=== PATIENT | male | born 1950 | race Two or more races ===

== ENCOUNTER 2022-05-14 10:40 | Inpatient (IN) | payer MEDICARE, OTHER ==
[2022-05-14] VITALS (12 sets, daily range): BP systolic 116–154; BP diastolic 45–82
[~2022-05-14] VITALS: Ht 177.8 cm; Wt 88.5 kg
--- NOTE | 2022-05-14 13:35 | NUR ---
ACCESS COORDINATOR NOTES: ADMITTED PT. FROM [facility]IA [facility]; PT. NO SSX OF ACUTE DISTRESS NOTED, ABLE TO MAKE NEEDS KNOWN, CALL LIGHT IN REACH, CHARGE NURSE NOTIFIED AND LUCIANA REGARDING PATIENT ADMISSION.
[2022-05-14] MEDS ORDERED: NITROGLYCERIN IN 5 % DEXTROSE 250 ML IV ONE (14:28)
[2022-05-14] MEDS ORDERED: IODIXANOL 150 ML IV ONE ×2 (14:28→15:39)
[2022-05-14] MEDS ORDERED: IV SET PRIMARY PUMP SET 1 EA INFUS.SET MC ONE (14:29)
[2022-05-14] MEDS ORDERED: IV NS 0.9% 1,000 ML ONE (14:29)
--- NOTE | 2022-05-14 14:30 | NUR ---
TO OPEN WINDER. PROCEDURE, NO SSX OF ACUTE DISTRESS NOTED, STABLE CONDITION UPON RADIO COMMUNICATIONS SUPERINTENDENT.
[2022-05-14] MEDS ORDERED: LIDOCAINE 1% INJ 50 ML MDV IJ ONE (14:36)
[2022-05-14] MEDS ORDERED: MIDAZOLAM HCL 2 MG/2ML VIAL ONE (15:07)
[2022-05-14] MEDS ORDERED: FENTANYL PF 100MCG/2ML AMPUL ONE (15:07)
[2022-05-14] MEDS ORDERED: ISOS30TA86 PO (15:23)
[2022-05-14] MEDS ORDERED: ONDA-97 PO (15:23)
[2022-05-14] MEDS ORDERED: AMLO-212 PO (15:23)
[2022-05-14] MEDS ORDERED: VALS80TA31 PO (15:23)
[2022-05-14] MEDS ORDERED: FAMO20TA8 PO (15:23)
[2022-05-14] MEDS ORDERED: LIDO700A30 TP (15:23)
[2022-05-14] MEDS ORDERED: GLIM4TAB37 PO (15:23)
[2022-05-14] MEDS ORDERED: SEMA1PEN SQ (15:23)
[2022-05-14] MEDS ORDERED: SITA1TAB6 PO (15:23)
[2022-05-14] MEDS ORDERED: DOCU-141 PO (15:23)
[2022-05-14] MEDS ORDERED: CHOL100043 PO (15:23)
[2022-05-14] MEDS ORDERED: FERR325T23 PO (15:23)
[2022-05-14] MEDS ORDERED: MONT10TA22 PO (15:23)
[2022-05-14] MEDS ORDERED: DAPA10TA PO (15:23)
[2022-05-14] MEDS ORDERED: ROSU10TA29 PO (15:23)
[2022-05-14] MEDS ORDERED: METO-357 PO (15:23)
[2022-05-14] MEDS ORDERED: MELA3TAB41 PO (15:23)
[2022-05-14] MEDS ORDERED: HYDR25TA4 PO (15:23)
[2022-05-14] MEDS ORDERED: RANO500T6 PO (15:23)
[2022-05-14] MEDS ORDERED: DULO30CA52 PO (15:23)
[2022-05-14] MEDS ORDERED: DICL100G34 TP (15:23)
[2022-05-14] MEDS ORDERED: SOLI10TA7 PO (15:23)
[2022-05-14] MEDS ORDERED: TICA90TA PO (15:23)
[2022-05-14] MEDS ORDERED: ALBU18HF2 IH (15:23)
[2022-05-14] MEDS ORDERED: LISI20TA30 PO (15:23)
[2022-05-14] MEDS ORDERED: OMEG-72 PO (15:23)
[2022-05-14] MEDS ORDERED: OMEP1CAP25 PO (15:23)
[2022-05-14] MEDS ORDERED: HYDR-4075 PO (15:23)
--- NOTE | 2022-05-14 16:35 | NUR ---
BACK FROM CATH. LAB. S/P CORONARY ANGIOGRAM,RIGHT FEMORAL SITE ,NO NOTED BLEEDING, DRSG CDI; BEDREST, FLAT ON BED PER MD ORDER.
--- NOTE | 2022-05-14 16:44 | NUR ---
NOTIFIED DR CHARLES THAT AND DAUGHTER ARE REQUESTING A CALL FROM .
--- NOTE | 2022-05-14 17:22 | NUR ---
NOTIFIED DR CHARLES 2ND TIME NOW THAT -FAN AND DAUGHTER ARE REQUESTING A CALL FROM MD.PER MD " I'LL CALL WHEN I CAN." PATIENT'S FAMILY WAS MADE AWARE AND VERBALIZED UNDERSTANDING.
[2022-05-14] MEDS ORDERED: ACETAMINOPHEN 325 MG TABLET PO PRN (18:00)
[2022-05-14] MEDS ORDERED: TEMAZEPAM 15 MG CAPSULE PO PRN (18:00)
[2022-05-14] MEDS ORDERED: HYDROCODONE/APAP 5/325MG TABLET PO PRN (18:00)
[2022-05-14] MEDS ORDERED: ONDANSETRON HCL/PF 4 MG/2 ML VIAL IVP PRN (18:00)
[2022-05-14] MEDS ORDERED: MORPHINE SULFATE INJ 2 MG/ML DISP.SYRIN IV PRN (18:00)
[2022-05-14] MEDS ORDERED: MAGNESIUM HYDROXIDE 30 ML UDC PO PRN (18:00)
[2022-05-14] MEDS ORDERED: DEXTROSE 50%-WATER 50 ML DISP.SYRIN IV PRN (18:00)
[2022-05-14] MEDS ORDERED: MAG HYDROX/AL HYDROX/SIMETH 30 ML UDC PO PRN (18:00)
[2022-05-14] MEDS ORDERED: Z GUARD REMEDY 4 OZ OINT TP PRN (18:00)
--- NOTE | 2022-05-14 18:02 | NUR ---
PER /DAUGHTER THEY ALREADY SPOKE WITH DR. CHARLES.
[2022-05-14] MEDS ORDERED: hydrALAZINE HCL 10 MG TABLET PO PRN (18:30)
[2022-05-14] MEDS ORDERED: ALBUTEROL FS 2.5 MG/0.5 ML VIAL.NEB NEB PRN (18:30)
[2022-05-14 19:40] LABS: CALCIUM, SERUM 8.4 mg/dL (8.5-10.1); CARBON DIOXIDE 21 mmol/L (21-32); CHLORIDE 107 mmol/L (98-107); CREATININE 1.4 mg/dL (0.6-1.3); GLUCOSE 100 mg/dL (74-106); POTASSIUM 4.7 mmol/L (3.5-5.1); SODIUM SERUM 138 mmol/L (136-145); UREA NITROGEN, BLOOD 25 mg/dL (7-18)
[2022-05-14] MEDS ORDERED: DICLOFENAC TOPICAL 100 GM GEL..GM. TP SCH (21:00)
[2022-05-14] MEDS: BLOOD SUGAR DIAGNOSTIC 1 EACH STRIP IN SCH (21:58)
[2022-05-15] VITALS (18 sets, daily range): BP systolic 104–155; BP diastolic 43–77
[2022-05-15 04:37] LABS: BASOPHILS # (AUTO) 0.1 K/uL (0.0-0.2); BASOPHILS % (AUTO) 0.7 % (0.0-2.0); EOSINOPHILS % (AUTO) 0.1 % (0.0-6.0); HEMATOCRIT 40 % (39-51); HEMOGLOBIN 13.3 g/dL (13.5-17.5); LYMPHOCYTES # (AUTO) 1.1 K/uL (0.8-4.8); LYMPHOCYTES % (AUTO) 9.3 % (20.0-44.0); MEAN CORPUSCULAR HGB CONC 33 g/dl (31.0-36.0); MEAN CORPUSCULAR VOLUME 85 fL (80-96); MONOCYTES # (AUTO) 0.9 K/uL (0.1-1.30); MONOCYTES % (AUTO) 7.5 % (2.0-12.0); NEUTROPHILS # (AUTO) 9.7 K/uL (1.8-8.9); NEUTROPHILS % (AUTO) 82.4 % (43.0-81.0); PLATELET COUNT (AUTO) 183 K/uL (150-450); RED BLOOD CELL COUNT(AUTO) 4.73 MIL/uL (4.5-6.0); WHITE BLOOD COUNT (AUTO) 11.8 K/uL (4.3-11.0)
[2022-05-15 04:51] LABS: CALCIUM, SERUM 9.4 mg/dL (8.5-10.1); CARBON DIOXIDE 25 mmol/L (21-32); CHLORIDE 104 mmol/L (98-107); CREATININE 1.6 mg/dL (0.6-1.3); GLUCOSE 96 mg/dL (74-106); MAGNESIUM 1.9 mg/dL (1.8-2.4); PHOSPHORUS 4.9 mg/dL (2.5-4.9); POTASSIUM 3.8 mmol/L (3.5-5.1); SODIUM SERUM 140 mmol/L (136-145); UREA NITROGEN, BLOOD 26 mg/dL (7-18)
[2022-05-15 04:52] LABS: CHOLESTEROL 163 mg/dL (<200); HDL CHOLESTEROL 39 mg/dL (40-60); LDL 101 mg/dL (0-99); TRIGLYCERIDES 150 mg/dL (30-150)
--- NOTE | 2022-05-15 05:21 | NUR ---
ICU/RN: CRITICAL TROP RELAYED TO TYLER MORENO. NO NEW ORDERS.
--- NOTE | 2022-05-15 07:15 | NUR ---
APPLIED TECHNOLOGIST OPENING NOTE: RECEIVED PT. IN BED, AWAKE AOX4, NO COMPLAINTS OF PAIN/DISCOMFORT AT THIS TIME. ON RA, SATURATING AT 97%. NO S/S OF RESPIRATORY DISTRESS. DIELECTRIC PRESS OPERATOR READS NSR AT 85 BPM. USES URINAL AT BEDSIDE, VOIDING CLEAR YELLOW URINE. DRESSING FOR R FEMORAL HEART CATH INSERTION SITE C/D/I. WILL CONTINUE TO MONITOR FOR S/S OF BLEEDING. IV ACCESS ON R HAND #20G, PATENT AND SALINE LOCKED. IV SITE DRESSING C/D/I WITH NO S/S OF INFILTRATION. SAFETY MEASURES IN PLACE: BED IN LOWEST AND LOCKED POSITION, HOB ELEVATED AT 30 DEGREES, BED ALARM ON, SIDE RAILS UP X2, CALL LIGHT WITHIN EASY REACH. WILL ENCOURAGE FREQUENT REPOSITIONING IN BED AT LEAST Q2H. WILL CONTINUE TO MONITOR PT. FOR ANY CHANGES.
[2022-05-15] MEDS ORDERED: FAMOTIDINE (20 MG) 20 MG TABLET PO SCH (09:00)
[2022-05-15] MEDS ORDERED: LIDOCAINE 5% (PATCH) 1 EA PATCH TP SCH (09:00)
[2022-05-15] MEDS: DAPAGLIFLOZIN PROPANEDIOL 5 MG TABLET PO SCH (09:57)
[2022-05-15] MEDS: CHOLECALCIFEROL 1,000 UNIT TABLET (VIT D3) PO SCH (09:58)
[2022-05-15] MEDS: HYDROCHLOROTHIAZIDE 25 MG TABLET PO SCH ×2 (09:58→17:00)
[2022-05-15] MEDS: ATORVASTATIN 10 MG TABLET PO SCH (09:58)
[2022-05-15] MEDS: FERROUS SULFATE (325 MG) 325 MG/TAB TABLET PO SCH ×2 (09:59→17:26)
[2022-05-15] MEDS: MONTELUKAST SODIUM (10MG) 10 MG TABLET PO SCH (09:59)
[2022-05-15] MEDS: TICAGRELOR 90 MG TABLET PO SCH ×2 (09:59→17:30)
[2022-05-15] MEDS: VALSARTAN 80 MG TABLET PO SCH (10:02)
[2022-05-15] MEDS: LISINOPRIL (20MG) 20 MG TABLET PO SCH (10:03)
[2022-05-15] MEDS: DULOXETINE HCL 30 MG CAPSULE.DR PO SCH (10:03)
[2022-05-15] MEDS: ISOSORBIDE MONONITRATE (30MG) 30 MG TAB.SR.24H PO SCH (10:03)
[2022-05-15] MEDS: AMLODIPINE BESYLATE 5 MG TABLET PO SCH ×2 (10:04→17:00)
[2022-05-15] MEDS: METOPROLOL SUCCINATE 50 MG TAB.SR.24H PO SCH ×2 (10:04→17:00)
[2022-05-15] MEDS: RANOLAZINE 500 MG TAB.ER.12H PO SCH ×2 (10:04→17:26)
[2022-05-15] MEDS: DOCUSATE SODIUM 100 MG CAPSULE PO SCH ×2 (10:04→17:26)
[2022-05-15] MEDS: GLIMEPIRIDE 4 MG TABLET PO SCH ×2 (10:04→17:27)
[2022-05-15] MEDS: PANTOPRAZOLE 40 MG TABLET.DR PO SCH (10:06)
[2022-05-15] MEDS: BLOOD SUGAR DIAGNOSTIC 1 EACH STRIP IN SCH ×4 (10:14→21:39)
--- NOTE | 2022-05-15 12:20 | NUR ---
OPTIMIZATION MANAGER NOTE: PT.'S BG - 156. REFUSED TO EAT OR DRINK ANYTHING. WILL HOLD INSULIN COVERAGE AND WILL CONTINUE TO MONITOR PT. FOR S/S OF HYPERGLYCEMIA.
--- NOTE | 2022-05-15 12:30 | NUR ---
STEEPLECHASE JOCKEY NOTE: PT. VOMITTED 150 ML CLEAR GASTRIC FLUID WITH FOOD PARTICLES. DENIES ANY NAUSEA. REFUSED ZOFRAN FOR NOW. EDUCATED ON IMPORTANCE OF GETTING MEDICATION. VS STABLE AT THIS TIME. WILL CONTINUE TO MONITOR PT.'S VOMITING.
--- NOTE | 2022-05-15 14:20 | NUR ---
COFFEE MACHINE TECHNICIAN NOTE: PT. COMPLAINED OF NAUSEA. NO VOMITTING AT THIS TIME. ZOFRAN 4 MG IV PUSH GIVEN AT 1346. PT. NOW VERBALIZED RELIEF OF NAUSEA. VOMITTING CEASED. WILL CONTINUE TO MONITOR PT. FOR ANY CHANGES.
--- NOTE | 2022-05-15 15:50 | NUR ---
MOLDING MACHINE OPERATORCLAY MINER NOTE: PT. TRANSFERRED TO TELE ROOM# 306-2 VIA HOSPITAL BED. AT BEDSIDE. REPORT GIVEN TO TRANSFORMER INSPECTOR - JAIRON. PT. REMAINS AWAKE AOX4, NO COMPLAINTS OF PAIN/DISCOMFORT/NAUSEA AT THIS TIME. NO VOMITTING. ON RA, SATURATING AT 94%. NO S/S OF RESPIRATORY DISTRESS. ORDER ENTRY ADMINISTRATOR READS NSR AT 79 BPM. USES URINAL AT BEDSIDE, VOIDED TOTAL OF 580ML CLEAR YELLOW URINE THIS SHIFT. DRESSING FOR R FEMORAL HEART CATH INSERTION SITE C/D/I. IV ACCESS REMAINS ON R HAND #20G, PATENT AND SALINE LOCKED. IV SITE DRESSING C/D/I WITH NO S/S OF INFILTRATION. SAFETY MEASURES MAINTAINED: BED IN LOWEST AND LOCKED POSITION, HOB ELEVATED AT 30 DEGREES, BED ALARM ON, SIDE RAILS UP X2, CALL LIGHT WITHIN EASY REACH. ENCOURAGED FREQUENT REPOSITIONING IN BED AT LEAST Q2H. PT. CHART, MEDICATIONS AND BELONGINGS HANDED TO TRANSFORMER INSPECTOR JAIRON AT BEDSIDE. ENDORSED CONTINUITY OF CARE.
--- NOTE | 2022-05-15 16:00 | NUR ---
ms rn received a new transfer from icu, awake,alert,oriented x4,not in any form of distress,respirations eveb abd unlabored,no sob noted, nsr on monitor,will monitor patient,all needs attended.
--- NOTE | 2022-05-15 17:58 | NUR ---
ms rn blood sugar -156 - patient refused to give coverage,no s/s of hyperglycemia noted,denies pain at this time will endorse to track grinder for quang.
--- NOTE | 2022-05-15 19:35 | NUR ---
SUPERVISOR IN CIRCUIT TESTING NOTES RECEIVED ON BED,A/O X4,BREATHING REGULAR,NOT IN ANY FORM OF DISTRESS.DENIES CHEST PAIN.S/P CARDIAC CATH YESTERDAY RIGHT GROIN.NO BLEEDING NOTED.SALINE LOCK LEFT HAND INTACT AND PATENT.CALL LIGHT IN REACH,NEEDS ANTICIPATED.
--- NOTE | 2022-05-15 21:40 | NUR ---
FARM EQUIPMENT TECHNICIAN NOTES ACCU-CHECK BLOOD SUGAR CHECKED 173MG/DL,REFUSED INSULIN COVERAGE. PER SLIDING SCALE.
[2022-05-16] VITALS: BP 102/48
[2022-05-16 05:00] VITALS: BP 105/48
[2022-05-16] MEDS: BLOOD SUGAR DIAGNOSTIC 1 EACH STRIP IN SCH ×4 (05:21→22:51)
--- NOTE | 2022-05-16 05:30 | NUR ---
MS RN NOTES ACCU-CHECK BLOOD SUGAR CHECK 85,NO INSULIN COVERAGE PER SLIDING SCALE.
[2022-05-16 06:00] LABS: BASOPHILS % (AUTO) 0.3 % (0.0-2.0); EOSINOPHILS % (AUTO) 0.9 % (0.0-6.0); HEMATOCRIT 35 % (39-51); HEMOGLOBIN 11.7 g/dL (13.5-17.5); LYMPHOCYTES # (AUTO) 1.3 K/uL (0.8-4.8); LYMPHOCYTES % (AUTO) 14.5 % (20.0-44.0); MEAN CORPUSCULAR HGB CONC 34 g/dl (31.0-36.0); MEAN CORPUSCULAR VOLUME 84 fL (80-96); MONOCYTES # (AUTO) 0.9 K/uL (0.1-1.30); MONOCYTES % (AUTO) 10.4 % (2.0-12.0); NEUTROPHILS # (AUTO) 6.6 K/uL (1.8-8.9); NEUTROPHILS % (AUTO) 73.9 % (43.0-81.0); PLATELET COUNT (AUTO) 163 K/uL (150-450); RED BLOOD CELL COUNT(AUTO) 4.13 MIL/uL (4.5-6.0); WHITE BLOOD COUNT (AUTO) 8.9 K/uL (4.3-11.0)
--- NOTE | 2022-05-16 06:17 | NUR ---
TRADER NOTES LAYING COMFORTABLY ON BED,SLEEP WELL.DENIES CHEST PAIN.URINE SPECIMEN STILL NEEDED.POSSIBLE DISCHARGE WHEN MEDICALLY STABLE.
[2022-05-16 06:37] LABS: CALCIUM, SERUM 8.6 mg/dL (8.5-10.1); CARBON DIOXIDE 24 mmol/L (21-32); CHLORIDE 105 mmol/L (98-107); CREATININE 2.2 mg/dL (0.6-1.3); GLUCOSE 75 mg/dL (74-106); MAGNESIUM 2.1 mg/dL (1.8-2.4); PHOSPHORUS 5.1 mg/dL (2.5-4.9); SODIUM SERUM 140 mmol/L (136-145); UREA NITROGEN, BLOOD 41 mg/dL (7-18)
[2022-05-16 07:00] VITALS: BP 113/67
--- NOTE | 2022-05-16 07:05 | NUR ---
HEADSTART TEACHER OPENING NOTES RECEIVED PATIENT RESTING IN BED, A/Ox4, ON ROOM AIR. NO S/S OF RESPIRATORY DISTRESS. ON TELE MONITORING SHOW SR HR 73. NO COMPLAINT OF CHEST PAIN OR DISCOMFORT. IV ACCESS R HAND #20G S/L. INTACT AND PATENT. NO S/S OF INFILTRATION. PATIENT SKIN INTACT. CONTINENT, HAS BATHROOM PRIVILEGE. SAFETY MEASURES IN PLACE: BED LOCKED AND IN LOWEST POSITION, HOB ELEVATED, SIDE RAILS UPx2, CALL LIGHT WITHIN REACH. WILL CONTINUE TO MONITOR.
[2022-05-16] MEDS: PANTOPRAZOLE 40 MG TABLET.DR PO SCH (09:13)
[2022-05-16] MEDS: RANOLAZINE 500 MG TAB.ER.12H PO SCH ×2 (09:13→17:14)
[2022-05-16] MEDS: DULOXETINE HCL 30 MG CAPSULE.DR PO SCH (09:13)
[2022-05-16] MEDS: TICAGRELOR 90 MG TABLET PO SCH ×2 (09:13→17:14)
[2022-05-16] MEDS: CHOLECALCIFEROL 1,000 UNIT TABLET (VIT D3) PO SCH (09:13)
[2022-05-16] MEDS: GLIMEPIRIDE 4 MG TABLET PO SCH ×2 (09:14→17:14)
[2022-05-16] MEDS: FERROUS SULFATE (325 MG) 325 MG/TAB TABLET PO SCH ×2 (09:14→17:14)
[2022-05-16] MEDS: ATORVASTATIN 10 MG TABLET PO SCH (09:14)
[2022-05-16] MEDS: DOCUSATE SODIUM 100 MG CAPSULE PO SCH ×2 (09:14→17:14)
[2022-05-16] MEDS: AMLODIPINE BESYLATE 5 MG TABLET PO SCH ×2 (09:16→17:00)
[2022-05-16] MEDS: METOPROLOL SUCCINATE 50 MG TAB.SR.24H PO SCH ×2 (09:17→17:00)
[2022-05-16] MEDS: MONTELUKAST SODIUM (10MG) 10 MG TABLET PO SCH (09:17)
[2022-05-16] MEDS: HYDROCHLOROTHIAZIDE 25 MG TABLET PO SCH ×2 (09:18→17:00)
[2022-05-16] MEDS: LISINOPRIL (20MG) 20 MG TABLET PO SCH (09:18)
[2022-05-16] MEDS: ISOSORBIDE MONONITRATE (30MG) 30 MG TAB.SR.24H PO SCH (09:19)
[2022-05-16] MEDS: VALSARTAN 80 MG TABLET PO SCH (09:21)
[2022-05-16] MEDS: DAPAGLIFLOZIN PROPANEDIOL 5 MG TABLET PO SCH (09:22)
--- NOTE | 2022-05-16 12:30 | NUR ---
RN NOTES PATIENT REFUSING INSULIN COVERAGE. EXPLAINED RISKS AND BENEFITS, WILL CONTINUE TO MONITOR.
[2022-05-16 16:00] VITALS: BP 103/52
--- NOTE | 2022-05-16 18:00 | NUR ---
RN NOTES PATIENT REFUSING INSULIN COVERAGE. EXPLAINED RISKS AND BENEFITS, WILL CONTINUE TO MONITOR.
--- NOTE | 2022-05-16 19:27 | NUR ---
ROLLER TURNER CLOSING NOTES PATIENT RESTING IN BED, A/Ox4, STABLE ON ROOM AIR. NO S/S OF RESPIRATORY DISTRESS. ON TELE MONITORING SHOW SR HR 75. NO COMPLAINT OF CHEST PAIN OR DISCOMFORT. IV ACCESS R HAND #20G S/L. INTACT AND PATENT. NO S/S OF INFILTRATION. PATIENT SKIN INTACT. CONTINENT, HAS BATHROOM PRIVILEGE. SAFETY MEASURES IN PLACE: BED LOCKED AND IN LOWEST POSITION, HOB ELEVATED, SIDE RAILS UPx2, CALL LIGHT WITHIN REACH. WILL ENDORSE TO NEXT SHIFT ANY YUKO.
[2022-05-16 19:28] LABS: BILIRUBIN,URINE NEGATIVE (NEGATIVE); COLOR,URINE YELLOW (YELLOW); LEUKOCYTE ESTERASE ,URINE NEGATIVE (NEGATIVE); NITRITE, URINE NEGATIVE (NEGATIVE); PH,URINE 5.5 (5.0-8.0); PROTEIN,URINE TRACE mg/dl (NEGATIVE); UGLUCOSE 3+ mg/dL (NEGATIVE); UROBILINOGEN,URINE 0.2 EU/dL (0.2)
[2022-05-16 19:43] LABS: BACTERIA,URINE None seen /HPF (None Seen); RBC,URINE 0-2 /HPF (0-2); SQUAMOUS EPITHELIAL CELL,UR Rare /HPF (None Seen); WBC,URINE NONE SEEN /HPF (0-3)
--- NOTE | 2022-05-16 19:45 | NUR ---
RESIN FILTERER OPENING NOTE RECEIVED PATIENT IN BED; AWAKE, ALERT AND ORIENTED X 4. ON ROOM AIR; TOLERATING WELL. BREATHING EVEN AND NONLABORED. NOT IN ANY FORM OF RESPIRATORY DISTRESS. DENIES ANY PAIN OR DISCOMFORT AT THIS TIME. ABLE TO MAKE NEEDS KNOWN. WITH IV ACCESS ON LEFT HAND 20G; PATENT, INTACT AND SALINE LOCKED. SAFETY PRECAUTIONS IMPLEMENTED: BED ALARM TURNED ON, CALL LIGHT AND TABLE WITHIN REACH, SIDE RAILS UP X 2, BED IN LOWEST LOCKED POSITION. WILL CONTINUE PLAN OF CARE.
[2022-05-16 20:00] VITALS: BP 101/49
[2022-05-16 20:25] VITALS: BP 101/49
[2022-05-16] MEDS: INSULIN REGULAR, HUMAN 100 UNIT/ML 3 ML VIAL SQ PRN (23:15)
--- NOTE | 2022-05-16 23:15 | NUR ---
RN NOTE BLOOD SUGAR CHECKED - 133 MG/DL. REGULAR INSULIN COVERAGE HELD PER PATIENT'S REQUEST.
[2022-05-17 00:21] VITALS: BP 115/51
[2022-05-17 04:21] VITALS: BP 105/55
[2022-05-17 06:10] LABS: BASOPHILS % (AUTO) 0.2 % (0.0-2.0); EOSINOPHILS % (AUTO) 1.2 % (0.0-6.0); HEMATOCRIT 36 % (39-51); HEMOGLOBIN 12.3 g/dL (13.5-17.5); LYMPHOCYTES # (AUTO) 1.2 K/uL (0.8-4.8); LYMPHOCYTES % (AUTO) 16.3 % (20.0-44.0); MEAN CORPUSCULAR HGB CONC 34 g/dl (31.0-36.0); MEAN CORPUSCULAR VOLUME 84 fL (80-96); MONOCYTES # (AUTO) 0.8 K/uL (0.1-1.30); MONOCYTES % (AUTO) 9.9 % (2.0-12.0); NEUTROPHILS # (AUTO) 5.5 K/uL (1.8-8.9); NEUTROPHILS % (AUTO) 72.4 % (43.0-81.0); PLATELET COUNT (AUTO) 176 K/uL (150-450); RED BLOOD CELL COUNT(AUTO) 4.35 MIL/uL (4.5-6.0); WHITE BLOOD COUNT (AUTO) 7.6 K/uL (4.3-11.0)
[2022-05-17] MEDS: BLOOD SUGAR DIAGNOSTIC 1 EACH STRIP IN SCH ×4 (06:29→17:21)
[2022-05-17] MEDS: INSULIN REGULAR, HUMAN 100 UNIT/ML 3 ML VIAL SQ PRN ×3 (06:30→17:10)
--- NOTE | 2022-05-17 06:50 | NUR ---
SCRIPT EDITOR CLOSING NOTE PATIENT IN BED; AWAKE, A/O X 4. STABLE ON ROOM AIR. BREATHING EQUAL AND UNLABORED. IN NO ACUTE DISTRESS. NO C/O ANY PAIN OR DISCOMFORT AT THIS TIME. WITH IV ACCESS ON LEFT HAND 20G; PATENT, INTACT AND SALINE LOCKED. ON TELEMETRY MONITORING WITH READING OF SR WITH BBB AND PAC HR-68 BPM. SAFETY PRECAUTIONS MAINTAINED: BED ALARM TURNED ON, CALL LIGHT AND TABLE WITHIN REACH, SIDE RAILS UP X 2, BED IN LOWEST LOCKED POSITION. ENDORSED TO RN FARIHA FOR YUKO.
--- NOTE | 2022-05-17 07:35 | NUR ---
HIGH SCHOOL MATHEMATICS TEACHER OPENING NOTE RECEIVED PATIENT IN BED; AWAKE, AOX4. ON ROOM AIR; WITH SPO2 AT 98% BREATHING EVEN AND UNLABORED. NOT IN ANY FORM OF RESPIRATORY DISTRESS. NO COMPLAINTS OF ANY PAIN OR DISCOMFORT AT THIS TIME. ABLE TO MAKE NEEDS KNOWN. COOPERATIVE, WITH IV ACCESS ON LH G#20, SALINE LOCKED, PATENT, INTACT AND FLUSHING WELL. TELE MONITORING SHOWS SR WITH BBB AT [address] DEPRESSION. SAFETY PRECAUTIONS IN PLACE: BED ALARM TURNED ON, CALL LIGHT AND TABLE WITHIN REACH, SIDE RAILS UP X 2, BED IN LOWEST LOCKED POSITION. WILL CONTINUE TO MONITOR DURING MY SHIFT.
[2022-05-17] MEDS: PANTOPRAZOLE 40 MG TABLET.DR PO SCH (07:52)
[2022-05-17 08:00] VITALS: BP 127/65
[2022-05-17 08:00] LABS: CALCIUM, SERUM 8.7 mg/dL (8.5-10.1); CARBON DIOXIDE 24 mmol/L (21-32); CHLORIDE 105 mmol/L (98-107); CREATININE 2.2 mg/dL (0.6-1.3); GLUCOSE 109 mg/dL (74-106); MAGNESIUM 2.3 mg/dL (1.8-2.4); PHOSPHORUS 4.2 mg/dL (2.5-4.9); SODIUM SERUM 140 mmol/L (136-145); UREA NITROGEN, BLOOD 49 mg/dL (7-18)
[2022-05-17] MEDS: DAPAGLIFLOZIN PROPANEDIOL 5 MG TABLET PO SCH (08:58)
[2022-05-17] MEDS: VALSARTAN 80 MG TABLET PO SCH (08:59)
[2022-05-17] MEDS: TICAGRELOR 90 MG TABLET PO SCH ×2 (08:59→17:16)
[2022-05-17] MEDS: CHOLECALCIFEROL 1,000 UNIT TABLET (VIT D3) PO SCH (08:59)
[2022-05-17] MEDS: FERROUS SULFATE (325 MG) 325 MG/TAB TABLET PO SCH ×2 (09:00→17:19)
[2022-05-17] MEDS: ATORVASTATIN 10 MG TABLET PO SCH (09:00)
[2022-05-17] MEDS: AMLODIPINE BESYLATE 5 MG TABLET PO SCH ×2 (09:00→17:20)
[2022-05-17] MEDS: ISOSORBIDE MONONITRATE (30MG) 30 MG TAB.SR.24H PO SCH (09:01)
[2022-05-17] MEDS: HYDROCHLOROTHIAZIDE 25 MG TABLET PO SCH (09:01)
[2022-05-17] MEDS: DULOXETINE HCL 30 MG CAPSULE.DR PO SCH (09:01)
[2022-05-17] MEDS: DOCUSATE SODIUM 100 MG CAPSULE PO SCH ×2 (09:01→17:17)
[2022-05-17] MEDS: GLIMEPIRIDE 4 MG TABLET PO SCH ×2 (09:02→17:17)
[2022-05-17] MEDS: RANOLAZINE 500 MG TAB.ER.12H PO SCH ×2 (09:02→17:19)
[2022-05-17] MEDS: MONTELUKAST SODIUM (10MG) 10 MG TABLET PO SCH (09:02)
[2022-05-17] MEDS: LISINOPRIL (20MG) 20 MG TABLET PO SCH (09:02)
[2022-05-17] MEDS: METOPROLOL SUCCINATE 50 MG TAB.SR.24H PO SCH ×2 (09:03→17:18)
--- NOTE | 2022-05-17 11:57 | NUR ---
RN NOTES - PATIENT REFUSED INSULIN FOR 169 BS DESPITE EDUCATED AND ENCOURAGEMENT
[2022-05-17] MEDS: IV NS 0.9% 1,000 ML IV SCH ×2 (14:58→22:50)
[2022-05-17 16:00] VITALS: BP 106/59
--- NOTE | 2022-05-17 18:55 | NUR ---
OPERATIONS SUPPORT SPECIALIST CLOSING NOTE PATIENT LYING IN BED; AWAKE, DUTCH SPEAKING MOSTLY, AOX4. ON ROOM AIR; WITH SPO2 AT 98% BREATHING EVEN AND UNLABORED. NOT IN ANY FORM OF RESPIRATORY DISTRESS. NO COMPLAINTS OF ANY PAIN OR DISCOMFORT AT THIS TIME. COOPERATIVE, WITH IV ACCESS ON LH G#20 WITH NS RUNNING AT 125 ML/HR PATENT, INTACT AND FLUSHING WELL. TELE MONITORING SHOWS SR WITH PVCS AND BORDERLINE BBB AT 67 BPM. ALL DUE MEDS GIVEN, ALL NEEDS MET. SAFETY PRECAUTIONS MAINTAINED: BED ALARM TURNED ON, CALL LIGHT AND TABLE WITHIN REACH, SIDE RAILS UP X 2, BED IN LOWEST LOCKED POSITION. WILL ENDORSE TO HAMMER HEATER NURSE.
--- NOTE | 2022-05-17 19:35 | NUR ---
RN OPENING NOTE RECEIVED PATIENT IN BED; AWAKE, ALERT AND ORIENTED X 4. ON ROOM AIR; TOLERATING WELL. BREATHING EVEN AND NONLABORED. NOT IN ANY FORM OF RESPIRATORY DISTRESS. DENIES ANY PAIN OR DISCOMFORT AT THIS TIME. ABLE TO MAKE NEEDS KNOWN. WITH IV ACCESS ON RIGHT HAND 20G; PATENT AND INTACT RUNNING WITH NS 1L REGULATED @ 125 ML/HR; FLUSHES WELL. SAFETY PRECAUTIONS IMPLEMENTED: BED ALARM TURNED ON, CALL LIGHT AND TABLE WITHIN REACH, SIDE RAILS UP X 2, BED IN LOWEST LOCKED POSITION. WILL CONTINUE TO MONITOR THROUGHOUT THE SHIFT.
[2022-05-17 20:00] VITALS: BP 109/64
[2022-05-18] VITALS: BP 134/67
[2022-05-18 04:00] VITALS: BP 125/71
--- NOTE | 2022-05-18 06:05 | NUR ---
RN NOTE PATIENT PULLED IV ACCESS. PRESSURE DRESSING APPLIED. ATTEMPTED TO REINSERT 3X BUT UNSUCCESSFUL. WILL ENDORSED TO INCOMING SHIFT.
[2022-05-18 06:15] LABS: BASOPHILS % (AUTO) 0.3 % (0.0-2.0); EOSINOPHILS % (AUTO) 1.5 % (0.0-6.0); HEMATOCRIT 37 % (39-51); HEMOGLOBIN 12.5 g/dL (13.5-17.5); LYMPHOCYTES # (AUTO) 1.3 K/uL (0.8-4.8); MEAN CORPUSCULAR HGB CONC 33 g/dl (31.0-36.0); MEAN CORPUSCULAR VOLUME 84 fL (80-96); MONOCYTES # (AUTO) 0.7 K/uL (0.1-1.30); MONOCYTES % (AUTO) 9.8 % (2.0-12.0); NEUTROPHILS # (AUTO) 5.4 K/uL (1.8-8.9); NEUTROPHILS % (AUTO) 71.4 % (43.0-81.0); PLATELET COUNT (AUTO) 201 K/uL (150-450); RED BLOOD CELL COUNT(AUTO) 4.45 MIL/uL (4.5-6.0); WHITE BLOOD COUNT (AUTO) 7.6 K/uL (4.3-11.0)
[2022-05-18 06:21] LABS: CALCIUM, SERUM 8.9 mg/dL (8.5-10.1); CARBON DIOXIDE 23 mmol/L (21-32); CHLORIDE 103 mmol/L (98-107); CREATININE 2.1 mg/dL (0.6-1.3); GLUCOSE 113 mg/dL (74-106); MAGNESIUM 2.4 mg/dL (1.8-2.4); POTASSIUM 3.9 mmol/L (3.5-5.1); SODIUM SERUM 137 mmol/L (136-145); UREA NITROGEN, BLOOD 54 mg/dL (7-18)
[2022-05-18] MEDS: BLOOD SUGAR DIAGNOSTIC 1 EACH STRIP IN SCH ×4 (06:27→21:03)
[2022-05-18] MEDS: IV NS 0.9% 1,000 ML IV SCH ×3 (06:29→20:01)
--- NOTE | 2022-05-18 06:45 | NUR ---
RN CLOSING NOTE PATIENT IN BED; AWAKE, A/O X 4. STABLE ON ROOM AIR. BREATHING EQUAL AND UNLABORED. IN NO ACUTE DISTRESS. NO C/O ANY PAIN OR DISCOMFORT AT THIS TIME. ON TELEMETRY MONITORING WITH READING OF SR WITH BBB AND PAC HR-60 BPM. SAFETY PRECAUTIONS MAINTAINED: BED ALARM TURNED ON, CALL LIGHT AND TABLE WITHIN REACH, SIDE RAILS UP X 2, BED IN LOWEST LOCKED POSITION. ENDORSED TO STACY FRIED FOR YUKO.
--- NOTE | 2022-05-18 07:38 | NUR ---
CREDIT CHARGE AUTHORIZER OPENING NOTE RECEIVED PATIENT IN BED; AWAKE, AOX4. ON ROOM AIR; WITH SPO2 AT 98% BREATHING EVEN AND UNLABORED. NOT IN ANY FORM OF RESPIRATORY DISTRESS. NO COMPLAINTS OF ANY PAIN OR DISCOMFORT AT THIS TIME. ABLE TO MAKE NEEDS KNOWN. COOPERATIVE. NO IV ACCESS NOTED, OPERATIONS BUSINESS PARTNER ATTEMPTED TO START BUT TO NO AVAIL. MD IS AWARE. PATENT, INTACT AND FLUSHING WELL. TELE MONITORING SHOWS SR WITH BBB AT [address] DEPRESSION. SAFETY PRECAUTIONS IN PLACE: BED ALARM TURNED ON, CALL LIGHT AND TABLE WITHIN REACH, SIDE RAILS UP X 2, BED IN LOWEST LOCKED POSITION. WILL CONTINUE TO MONITOR DURING MY SHIFT. Addendum: 05/18/22 at 1632 by RANDY ESPINOZA RN CORRECTION: "PATENT, INTACT, AND FLUSHING WELL" NOT APPROPRIATE.
[2022-05-18] MEDS: PANTOPRAZOLE 40 MG TABLET.DR PO SCH (07:54)
[2022-05-18 08:00] VITALS: BP 137/75
[2022-05-18] MEDS: DAPAGLIFLOZIN PROPANEDIOL 5 MG TABLET PO SCH (08:16)
[2022-05-18] MEDS: DULOXETINE HCL 30 MG CAPSULE.DR PO SCH (08:17)
[2022-05-18] MEDS: VALSARTAN 80 MG TABLET PO SCH (08:17)
[2022-05-18] MEDS: ATORVASTATIN 10 MG TABLET PO SCH (08:17)
[2022-05-18] MEDS: FERROUS SULFATE (325 MG) 325 MG/TAB TABLET PO SCH ×2 (08:17→17:08)
[2022-05-18] MEDS: TICAGRELOR 90 MG TABLET PO SCH ×2 (08:17→17:08)
[2022-05-18] MEDS: RANOLAZINE 500 MG TAB.ER.12H PO SCH ×2 (08:18→17:10)
[2022-05-18] MEDS: CHOLECALCIFEROL 1,000 UNIT TABLET (VIT D3) PO SCH (08:18)
[2022-05-18] MEDS: METOPROLOL SUCCINATE 50 MG TAB.SR.24H PO SCH ×2 (08:18→17:09)
[2022-05-18] MEDS: GLIMEPIRIDE 4 MG TABLET PO SCH ×2 (08:19→17:11)
[2022-05-18] MEDS: ISOSORBIDE MONONITRATE (30MG) 30 MG TAB.SR.24H PO SCH (08:19)
[2022-05-18] MEDS: DOCUSATE SODIUM 100 MG CAPSULE PO SCH ×2 (08:19→17:10)
[2022-05-18] MEDS: AMLODIPINE BESYLATE 5 MG TABLET PO SCH ×2 (08:19→17:11)
[2022-05-18] MEDS: MONTELUKAST SODIUM (10MG) 10 MG TABLET PO SCH (08:19)
--- NOTE | 2022-05-18 10:00 | NUR ---
RN NOTES - ATTEMPTED TO START AN IV BUT NO SUCCESS, CHARGE NURSE AWARE, MD AWARE, SUGGESTED MIDLINE INSERTION, AWAITING APPROVAL
[2022-05-18] MEDS: INSULIN REGULAR, HUMAN 100 UNIT/ML 3 ML VIAL SQ PRN ×2 (12:01→17:18)
--- NOTE | 2022-05-18 15:35 | NUR ---
RN NOTES - SUCCESSFUL IV LINE INSERTED LFA G#24 FLUSHING WELL.
[2022-05-18 16:00] VITALS: BP 102/55
[2022-05-18 20:34] VITALS: BP 117/82
--- NOTE | 2022-05-18 21:03 | NUR ---
RN NOTES - REFUSED INSULIN BS OF 150, PATIENT REFUSED INSULIN COVERAGE DESPITE ENCOURAGEMENT.
[2022-05-19 00:15] VITALS: BP 115/61
[2022-05-19] MEDS: IV NS 0.9% 1,000 ML IV SCH ×2 (02:14→11:00)
[2022-05-19 04:45] VITALS: BP 115/62
--- NOTE | 2022-05-19 05:13 | NUR ---
SPOOLING SUPERVISOR CLOSING NOTE PATIENT IN BED; SLEEPING, EASILY AWAKEN, AOX4. STILL ON ROOM AIR, BREATHING EVEN AND UNLABORED. NOT IN ANY FORM OF RESPIRATORY DISTRESS. NO COMPLAINTS OF ANY PAIN OR DISCOMFORT AT THIS TIME. ABLE TO MAKE NEEDS KNOWN. COOPERATIVE. IV ACCESS ON RFA G#24 WITH NS RUNNING AT 150 ML/HR. PATENT, INTACT AND FLUSHING WELL. TELE MONITORING SHOWS SR WITH BBB, ST DEPRESSION AT 76 BPM AT THIS TIME. ALL NEEDS METM ALL DUE MEDS GIVEN. SAFETY PRECAUTIONS MAINTAINED: BED ALARM TURNED ON, CALL LIGHT AND TABLE WITHIN REACH, SIDE RAILS UP X 2, BED IN LOWEST LOCKED POSITION. ENDORSED TO THE RN FOR CONTINUITY OF CARE.
--- NOTE | 2022-05-19 05:31 | NUR ---
RN NOTES - CHECKED BLOOD SUGAR AND CAME OUT TO BE 65, INFORMED CHARGE NURSE. GAVE PATIENT ORANGE MURIEL. WILL RETEST AGAIN.
[2022-05-19 05:53] LABS: BASOPHILS % (AUTO) 0.2 % (0.0-2.0); EOSINOPHILS % (AUTO) 2.4 % (0.0-6.0); HEMATOCRIT 37 % (39-51); HEMOGLOBIN 12.1 g/dL (13.5-17.5); LYMPHOCYTES # (AUTO) 1.3 K/uL (0.8-4.8); LYMPHOCYTES % (AUTO) 18.3 % (20.0-44.0); MEAN CORPUSCULAR HGB CONC 33 g/dl (31.0-36.0); MEAN CORPUSCULAR VOLUME 84 fL (80-96); MONOCYTES # (AUTO) 0.7 K/uL (0.1-1.30); MONOCYTES % (AUTO) 10.3 % (2.0-12.0); NEUTROPHILS # (AUTO) 4.8 K/uL (1.8-8.9); NEUTROPHILS % (AUTO) 68.8 % (43.0-81.0); PLATELET COUNT (AUTO) 199 K/uL (150-450)
--- NOTE | 2022-05-19 06:10 | NUR ---
RN ELIGIBILITY NOTE RECHECKED BG AFTER LICENSED NURSE GAVE HIM ORANGE JUICE AND WENT UP TO 102, NO S/SX. OF HYPOGLYCEMIA NOTED.
[2022-05-19 06:20] LABS: CALCIUM, SERUM 8.7 mg/dL (8.5-10.1); CARBON DIOXIDE 22 mmol/L (21-32); CHLORIDE 106 mmol/L (98-107); CREATININE 1.7 mg/dL (0.6-1.3); GLUCOSE 69 mg/dL (74-106); MAGNESIUM 2.1 mg/dL (1.8-2.4); PHOSPHORUS 3.9 mg/dL (2.5-4.9); POTASSIUM 3.9 mmol/L (3.5-5.1); SODIUM SERUM 139 mmol/L (136-145); UREA NITROGEN, BLOOD 48 mg/dL (7-18)
[2022-05-19] MEDS: BLOOD SUGAR DIAGNOSTIC 1 EACH STRIP IN SCH ×2 (06:30→12:02)
--- NOTE | 2022-05-19 07:30 | NUR ---
RECRUITMENT ASSISTANT OPENING NOTE RECEIVED PATIENT IN BED; AWAKE, AOX4. ON ROOM AIR; WITH SPO2 AT 98% BREATHING EVEN AND UNLABORED. NOT IN ANY FORM OF RESPIRATORY DISTRESS. NO COMPLAINTS OF ANY PAIN OR DISCOMFORT AT THIS TIME. ABLE TO MAKE NEEDS KNOWN. COOPERATIVE. SAFETY PRECAUTIONS IN PLACE: BED ALARM TURNED ON, CALL LIGHT AND TABLE WITHIN REACH, SIDE RAILS UP X 2, BED IN LOWEST LOCKED POSITION. WILL CONTINUE TO MONITOR DURING MY SHIFT.
[2022-05-19 08:00] VITALS: BP 116/64
[2022-05-19] MEDS: PANTOPRAZOLE 40 MG TABLET.DR PO SCH (08:49)
[2022-05-19] MEDS: AMLODIPINE BESYLATE 5 MG TABLET PO SCH (09:50)
[2022-05-19] MEDS: ATORVASTATIN 10 MG TABLET PO SCH (09:50)
[2022-05-19] MEDS: MONTELUKAST SODIUM (10MG) 10 MG TABLET PO SCH (09:51)
[2022-05-19] MEDS: GLIMEPIRIDE 4 MG TABLET PO SCH (09:51)
[2022-05-19] MEDS: DULOXETINE HCL 30 MG CAPSULE.DR PO SCH (09:51)
[2022-05-19] MEDS: RANOLAZINE 500 MG TAB.ER.12H PO SCH (09:51)
[2022-05-19] MEDS: CHOLECALCIFEROL 1,000 UNIT TABLET (VIT D3) PO SCH (09:52)
[2022-05-19] MEDS: FERROUS SULFATE (325 MG) 325 MG/TAB TABLET PO SCH (09:52)
[2022-05-19] MEDS: ISOSORBIDE MONONITRATE (30MG) 30 MG TAB.SR.24H PO SCH (09:52)
[2022-05-19] MEDS: VALSARTAN 80 MG TABLET PO SCH (09:52)
[2022-05-19] MEDS: METOPROLOL SUCCINATE 50 MG TAB.SR.24H PO SCH (09:53)
[2022-05-19] MEDS: DOCUSATE SODIUM 100 MG CAPSULE PO SCH (09:56)
[2022-05-19] MEDS: TICAGRELOR 90 MG TABLET PO SCH (10:45)
[2022-05-19] MEDS: DAPAGLIFLOZIN PROPANEDIOL 5 MG TABLET PO SCH (10:45)
[2022-05-19 12:00] VITALS: BP 119/62
[2022-05-19] MEDS: INSULIN REGULAR, HUMAN 100 UNIT/ML 3 ML VIAL SQ PRN (12:21)
--- NOTE | 2022-05-19 15:33 | NUR ---
DISCHARGED NOTE PATIENT DISCHARGED TO HOME A/OX4. ON JUAN MANUEL, TOLERATING WELL. VITALS TAKEN,STABLE AND RECORDED. REMOVED IV ACCESS ASEPTICALLY. ALL DUE MEDS GIVEN. DISCHARGED INSTRUCTION GIVEN TO PATIENT AND , VERBALIZED UNDERSTANDING. PATIENT'S SKIN INTACT. PATIENT LEFT THE UNIT VIA WHEELCHAIR ASSISTED TO THE LOBBY. DISCHARGED.
== END 2022-05-19 15:30 | disposition home or self-care (01) | DRG 280 ==
LOC: ICU 13:39 → TELE 05-15 15:47
PROVIDERS: ADMIT Nurse Practitioner Acute Care; ATTEND Student in an Organized Health Care Education/Training Program
PROC: 4A023N7 Measurement of Cardiac Sampling and Pressure, Left Heart, Percutaneous Approach (ICD-10-PCS; principal; 2022-05-14)
PROC: B211YZZ Fluoroscopy of Multiple Coronary Arteries using Other Contrast (ICD-10-PCS; 2022-05-14)
PROC: B41DYZZ Fluoroscopy of Aorta and Bilateral Lower Extremity Arteries using Other Contrast (ICD-10-PCS; 2022-05-14)
PROC: B213YZZ Fluoroscopy of Multiple Coronary Artery Bypass Grafts using Other Contrast (ICD-10-PCS; 2022-05-14)
DX: I25.810 Atherosclerosis of coronary artery bypass graft(s) without angina pectoris (principal); I21.A1 Myocardial infarction type 2; N17.0 Acute kidney failure with tubular necrosis; I69.351 Hemiplegia and hemiparesis following cerebral infarction affecting right dominant side; I10 Essential (primary) hypertension; E78.5 Hyperlipidemia, unspecified; Z90.49 Acquired absence of other specified parts of digestive tract; Z95.1 Presence of aortocoronary bypass graft; Z79.51 Long term (current) use of inhaled steroids; Z79.899 Other long term (current) drug therapy; Z79.84 Long term (current) use of oral hypoglycemic drugs; F32.A Depression, unspecified; E11.9 Type 2 diabetes mellitus without complications; K21.9 Gastro-esophageal reflux disease without esophagitis; T50.8X5A Adverse effect of diagnostic agents, initial encounter; Y92.89 Other specified places as the place of occurrence of the external cause
CPT/HCPCS: 36415; 71045-TC; 75625; 76770-TC; 80048-TC; 80061-TC; 81001; 82570-TC; 82962-TC; 83735-TC; 84100-TC; 84300-TC; 84484-TC; 85025-TC; 93307-TC; C1887; C1894; G0378; G0500; J1644; J1815; J2250; J2405; J3010; J3490; J7030; Q9967